=== PATIENT | male | born 1975 ===

== ENCOUNTER → 2017-05-12 | Outpatient (CLI) | payer OTHER ==
[~2017-05-12] MED LIST: CYCL10TA2 PO; ESOM40CA PO; IBUP-1060 PO; IOHEXOL 180 MG/ML 10 ML VIAL. ONE; MULT1TAB52 PO; NAPR500T3 PO; PANT20TA2 PO; PREG50CA PO; Vitamin D; methylPREDNISolone ACETATE 40 MG/ML VIAL. ONE; methylPREDNISolone ACETATE 80 MG/ML VIAL. ONE
--- NOTE | 2017-05-12 09:42 | PAIN ---
DATE OF SERVICE: 05/12/2017 DATE OF SERVICE: 05/12/2017 DIAGNOSES: Cervical radiculopathy with cervical degenerative disk disease. HISTORY OF PRESENT ILLNESS: The patient is a 41-year-old male who returns for followup status post previous cervical epidural steroid injections, most recently in 02/2016. The patient reports about 75% improvement at that time with the injection. Reports no new motor or sensory deficits, but still pain is returning now over the past 2 months or so in the base of the neck, bilateral upper extremities and shoulders radiating to the hands with tingling and numbness in the bilateral hands. He says the right equal to left, somewhat worse on the right at times, but essentially equal. The patient reports it is burning, stabbing tight and constant sensation. The patient reports a 6 on a scale of 10 at its worst, 4 on average, is currently at 2 on a scale of 10 today, which is at its least. The patient reports no new motor or sensory deficits. It awakens him from sleep occasionally, but not every night, he can reposition or get out of bed, change positions, and even able to get back to sleep. The patient reports again no loss of motor function, but increasing fatigability with the upper extremities, especially on the right side and he is right handed. PHYSICAL EXAMINATION: VITAL SIGNS: Today, the patient's blood pressure is 124/89, pulse is 101, respirations 18, temperature is 98.0 degrees Fahrenheit, height is 65 inches and weight is 225 pounds. GENERAL: The patient is awake, alert, oriented, appropriate, very pleasant demeanor. HEENT: Shows normocephalic, atraumatic. Extraocular movements are intact and symmetrical. Oral cavity shows mucous membranes moist and pink. Dentition is intact. NECK: Shows anterior throat supple without palpable lymphadenopathy noted. Swallow reflex is symmetrical. CHEST: Shows normal on inspection. Breath sounds clear to auscultation bilaterally. HEART: Shows S1 and S2 clear. No murmurs auscultated. ABDOMEN: Soft, nontender, nondistended. No palpable organomegaly is noted. BACK: Shows spine grossly midline. Cervical paraspinous musculature is symmetrical on inspection with palpation shows some mild tenderness in the inferior aspect of the cervical paraspinous muscles, but only diffusely, and is symmetrical into the superior medial and lateral trapezius, also mildly tender with palpation bilaterally, but without radiation. The patient shows good rotation and motion of cervical spine, both laterally as well as extension and flexion with some minor pain reported with extension, but not with forward flexion. No radiation in the upper extremities. EXTREMITIES: Upper extremities show deep tendon reflexes at 2+ in the biceps and triceps tendons. Motor exam is strong with buildings and grounds supervisor strength rated at 5/5 as is biceps and triceps flexion. Peripheral pulses are 2+ radial distribution and equal bilaterally. No peripheral edema is noted. Options were discussed with the patient and the patient's old chart was reviewed as his current medication regimen updated. Current review of systems updated today as well. We will proceed with the cervical epidural steroid injection with fluoroscopic guidance. Risks were again discussed including, but not limited to bleeding, infection, possibility of epidural hematoma, subsequent neurologic compromise, dural puncture, headaches, spinal cord and/or nerve damage, side effects of steroid medication and poor results regarding pain control. The patient understands and wishes to proceed. The patient will return to clinic in approximately 2 weeks or as necessary. I also encouraged MRI scan of the lumbar spine as the patient has some radicular symptoms in the bilateral lower extremities and some burning, stinging into the feet as well, which is only intermittent, but sounds like it has some radicular qualities as well. We will recommend this be ordered to his primary service and see if this can be accomplished. DIAGNOSIS: Cervical radiculopathy, cervical degenerative disk disease. PROCEDURE: Cervical epidural steroid injection in translaminar approach C6-C7 level using a C-arm fluoroscopic guidance under sterile prep and drape using local anesthetic. MEDICATION INJECTED: Total of 120 mg Depo-Medrol plus 5 mL preservative-free normal saline and 2 mL of Isovue for contrast. CONDITION AT DISCHARGE: Stable. The patient tolerated procedure well, had no complications. MIA BARRIENTOS MD DR: REMIGIO/mercedes JOB#: [id number] / [id number]
== END | disposition home or self-care (01) ==
LOC: PNCL 07:37
PROVIDERS: ATTEND Anesthesiology
DX: M50.123 Cervical disc disorder at C6-C7 level with radiculopathy (principal)
CPT/HCPCS: 62321; J1030; J1040; 62323

== ENCOUNTER → 2017-06-16 | Outpatient (CLI) | payer OTHER ==
[~2017-06-16] MED LIST changes: -NAPR500T3 PO; +NAPR500T4 PO
--- NOTE | 2017-06-16 09:25 | PAIN ---
DATE OF SERVICE: 06/16/2017 PROGRESS NOTE FOR PAIN CLINIC DIAGNOSES: Cervical radiculopathy with cervical degenerative disk disease. HISTORY OF PRESENT ILLNESS: The patient is a 41-year-old male who returns for followup status post cervical epidural steroid injection x 1. The patient reports about 50% improvement in the neck and bilateral upper extremity pain. The patient reports increasing activity with greater ease and comfort and sleeping well at night. Does not awake him from sleep, is sleeping 8 hours at a time. The patient reports the pain is returning now, however, but only to a [id number] extent, rates at 5 on a scale of 10 at its worst, 3 on average and 1 on a scale of 10 at least and it is 1 today. The patient reports aching, burning, tingling and becoming more constant, but again significantly improved and decreased with pain after the first injection. The patient did have an MRI scan since his last visit showing some significant severe stenosis at the C6-C7 level with a bilateral neural foraminal narrowing as well as some protruding disks at C3-C4, C4-C5 and C5-C6. PHYSICAL EXAMINATION: VITAL SIGNS: Today, the patient's blood pressure is 124/78, pulse 98, respirations 18, temperature 97.8 degrees Fahrenheit, height is 65 inches and weight is 218 pounds. GENERAL: The patient is awake, alert, oriented, appropriate and very pleasant demeanor. HEENT: Head shows normocephalic and atraumatic. Extraocular movements are intact and symmetrical. Oral cavity, mucous membranes are moist and pink. Dentition is intact. NECK: Shows anterior throat supple without palpable lymphadenopathy noted. Swallow reflex is symmetrical. CHEST: Shows normal on inspection. Breath sounds clear to auscultation bilaterally. HEART: Shows S1 and S2 clear. No murmurs auscultated. ABDOMEN: Soft, nontender and nondistended. No palpable organomegaly noted. BACK: Shows spine grossly in the midline. Cervical lordotic curvature appears normal with inspection of the paraspinous musculature is symmetrical without evidence of atrophy or hypertrophy. The patient shows good rotational motion of the cervical spine, both laterally as well as extension and flexion with some minor pain reported in the base of the neck and shoulders with extension but not with forward flexion, right or left lateral rotation. EXTREMITIES: Upper extremity showed deep tendon reflexes 2+ in the biceps and triceps tendons. Motor exam is strong with 5/5 automatic i threading machine feeder strength, biceps and triceps flexion. Peripheral pulses are 2+ to radial distribution. Options were discussed with the patient and the patient's old chart was reviewed as his current medication regimen updated. Current review of systems updated today as well. We will proceed with a second in the series of cervical epidural steroid injection with fluoroscopic guidance. Risks were again discussed including, but not limited to bleeding, infection, possibility of epidural hematoma, subsequent neurologic compromise, dural puncture, headaches, spinal cord and/or nerve damage, side effects of steroid medication and poor results regarding pain control. The patient understands and wishes to proceed. The patient will return to clinic in approximately 2 weeks for followup. He was counseled to return appointment, activity level and side effects to be aware of. DIAGNOSIS: Cervical radiculopathy, cervical degenerative disk disease. PROCEDURE: Cervical epidural steroid injection in translaminar approach at C6-C7 level using C-arm fluoroscopic guidance under sterile prep and drape using local anesthetic. MEDICATION INJECTED: A total of 120 mg Depo-Medrol plus 5 mL of preservative-free normal saline and 2 mL of Isovue for contrast. CONDITION AT DISCHARGE: Stable. The patient tolerated procedure well, had no complications. MIA BARRIENTOS MD DR: REMIGIO/mercedes JOB#: [id number] / [id number]
== END | disposition home or self-care (01) ==
LOC: EEVIPCON 07:40 → PNCL 07:44
PROVIDERS: ATTEND Anesthesiology
DX: M50.123 Cervical disc disorder at C6-C7 level with radiculopathy (principal)
CPT/HCPCS: 62321; J1030; J1040

== ENCOUNTER → 2017-10-26 | Outpatient (CLI) | payer OTHER ==
[~2017-10-26] MED LIST changes: -CYCL10TA2 PO; -ESOM40CA PO; -IBUP-1060 PO; +IOHEXOL 180 MG/ML 10 ML VIAL.; -IOHEXOL 180 MG/ML 10 ML VIAL. ONE; -MULT1TAB52 PO; -NAPR500T4 PO; -PANT20TA2 PO; -PREG50CA PO; -Vitamin D; +methylPREDNISolone ACETATE 40 MG/ML VIAL.; -methylPREDNISolone ACETATE 40 MG/ML VIAL. ONE; +methylPREDNISolone ACETATE 80 MG/ML VIAL.; -methylPREDNISolone ACETATE 80 MG/ML VIAL. ONE
== END | disposition home or self-care (01) ==
LOC: PNCL 07:23
DX: M50.123 Cervical disc disorder at C6-C7 level with radiculopathy (principal)
CPT/HCPCS: 62321; J1030; J1040; Q9965

== ENCOUNTER → 2018-10-18 | Outpatient (CLI) | payer OTHER ==
[~2018-10-18] MED LIST changes: +CYCL10TA2 PO; +ESOM40CA PO; +IBUP-1060 PO; -IOHEXOL 180 MG/ML 10 ML VIAL.; +IOHEXOL 180 MG/ML 10 ML VIAL. ONE; +MULT1TAB52 PO; +NAPR-514 PO; +PANT20TA2 PO; +PREG50CA PO; +Vitamin D; -methylPREDNISolone ACETATE 40 MG/ML VIAL.; +methylPREDNISolone ACETATE 40 MG/ML VIAL. ONE; -methylPREDNISolone ACETATE 80 MG/ML VIAL.; +methylPREDNISolone ACETATE 80 MG/ML VIAL. ONE
--- NOTE | 2018-10-18 12:47 | PAIN ---
DATE OF SERVICE: 10/18/2018 PROGRESS NOTE FOR PAIN CLINIC DIAGNOSIS: Cervical radiculopathy with cervical degenerative disk disease. HISTORY OF PRESENT ILLNESS: The patient is a 43-year-old male who returns for followup status post cervical epidural steroid injections x 3, last seen on 10/26/2017. The patient reports he did very well with about a 60% improvement overall from the injections and reports the pain relief that is lasted almost a year. The patient reports it is better with doing work activities, household activities, sleeping better. It is beginning to awaken him from sleep occasionally but not every night. The patient reports the pain is in the base of the neck, upper extremities bilaterally, slightly worse on the left than the right into the arms and hands with some numbness and tingling in the fingers of both hands, mostly the thumb, first and second fingers. The patient reports it is burning, tight, radiating, becoming more constant, more noticeable. The patient reports it is a 6 on a scale of 10 at its worse, 3 on average and a 2 at its least and is a 3 today. The patient reports no new motor or sensory deficits or other complaints. PHYSICAL EXAMINATION: VITAL SIGNS: The patient's blood pressure 144/97, pulse 109, respirations 16, temperature 97.9 degrees Fahrenheit and weight is 234 pounds. GENERAL: The patient is awake, alert, oriented, appropriate and very pleasant demeanor. HEENT: Head shows normocephalic and atraumatic. Extraocular movements are intact and symmetrical. Oral cavity, mucous membranes are moist and pink. Dentition is intact. NECK: Shows anterior throat supple without palpable lymphadenopathy noted. Swallow reflex symmetrical. CHEST: Shows normal on inspection. Breath sounds clear to auscultation bilaterally. HEART: Shows S1 and S2 clear. No murmurs auscultated. ABDOMEN: Soft, nontender and nondistended. No palpable organomegaly is noted. No rebound or guarding demonstrated. BACK: Shows spine grossly in the midline. Cervical paraspinous muscle shows symmetrical on inspection with normal cervical lordotic curvature on inspection. Palpation shows moderate tenderness in the inferior aspect of the cervical paraspinous musculature bilaterally as well as the superior medial trapezius, slightly more on the left than the right but present bilaterally without asymmetry. The patient has good rotational motion of the cervical spine, both laterally greater than 45 degrees right and left as well as full extension, full forward flexion without significant limitation or pain reported. EXTREMITIES: Upper extremities show deep tendon reflexes 2+ in the biceps and triceps tendons. Motor exam is 5/5 with nurse midwife strength, bicep and tricep flexion. Peripheral pulses are 2+ radial distribution bilaterally. No peripheral edema is noted. Options were discussed with the patient. The patient's old chart was reviewed as well as his current medication regimen. Current review of systems updated today as well. We will proceed with the first in this series of cervical epidural steroid injection today with fluoroscopic guidance. Risks were again discussed including, but not limited to bleeding, infection, possibility of epidural hematoma and subsequent neurological compromise, dural puncture, headaches, spinal cord and/or nerve damage, side effects of steroid medication and poor results regarding pain control. The patient understands and wished to proceed. The patient will return to the clinic in approximately 2 weeks for followup, was counseled as to return appointment as well as side effects to be aware of. DIAGNOSIS: Cervical radiculopathy with cervical degenerative disk disease. PROCEDURE: Cervical epidural steroid injection, translaminar approach, C6-C7 level using C-arm fluoroscopic guidance under sterile prep and drape using local anesthetic. MEDICATION INJECTED: A total of 120 mg Depo-Medrol plus 5 mL of preservative-free normal saline and 2 mL of Isovue for contrast. CONDITION AT DISCHARGE: Stable. The patient tolerated the procedure well and had no complications. MIA BARRIENTOS MD DR: REMIGIO/mercedes JOB#: [id number] / [id number]
== END | disposition home or self-care (01) ==
LOC: EEVIPCON 10-11 07:40 → PNCL 07:48
PROVIDERS: ATTEND Anesthesiology
DX: M50.123 Cervical disc disorder at C6-C7 level with radiculopathy (principal)
CPT/HCPCS: 62321; J1030; J1040; Q9965

== ENCOUNTER → 2019-01-31 | Outpatient (CLI) | payer OTHER ==
--- NOTE | 2019-01-31 21:47 | PAIN ---
DATE OF SERVICE: 01/31/2019 DIAGNOSES: Cervical radiculopathy with cervical degenerative disk disease. HISTORY OF PRESENT ILLNESS: The patient is a 43-year-old male who returns for followup status post cervical epidural steroid injection x 1 on 10/18/2018. The patient reports he did fairly well, had about 80% improvement until about the last 4 weeks, pain is returning in the base of neck and right upper extremity. The patient reports it is in the shoulder and arm into the hand and fingers as well as previous and numbness and tingling, burning, becoming, more constant and tight with activity, worse with reaching over his head with the right arm and weight lifting with the right arm or any type of weightbearing, repetitive motions or reaching over his head on the right side. The patient reports it is an 8 on a scale of 10 at its worst, 6 on average, 5 at its least and is a 6 today. The patient reports no new motor or sensory deficits, no new bowel or bladder incontinence. It does not awaken him from sleep. Initially, he was increasing his ability to do work activities and activities with traveling well greater ease and comfort, but the pain is returning now, it is still not awakening him from sleep. The patient reports no new motor or sensory deficits or other complaints. PHYSICAL EXAMINATION: VITAL SIGNS: The patient's blood pressure 125/84, pulse 88, respirations 18, temperature 97.6 degrees Fahrenheit, height 65 inches, weight is 226 pounds. GENERAL: The patient is awake, alert, oriented, appropriate, very pleasant demeanor. HEENT: Shows normocephalic, atraumatic. Extraocular movements are intact and symmetrical. Oral cavity: Mucous membranes moist and pink. Dentition is intact. NECK: Shows anterior throat supple without palpable lymphadenopathy noted. Swallow reflex is symmetrical. CHEST: Shows normal with inspection. Breath sounds clear to auscultation bilaterally. HEART: Shows S1, S2 clear. No murmurs auscultated. ABDOMEN: Soft, nontender, nondistended. No palpable organomegaly is noted. No rebound or guarding demonstrated. BACK: Shows spine grossly in the midline. Normal appearing cervical lordotic curvature and thoracic kyphotic curvature. The patient's cervical paraspinous muscle shows symmetrical on inspection, on palpation shows some moderate tenderness diffusely in the middle and inferior aspect of the cervical paraspinous musculature, more on the right than the left and into the superior medial trapezius more on the right than the left as well. The patient shows good rotational motion of cervical spine; however, both laterally as well as extension and flexion without significant difficulty or pain reported. EXTREMITIES: Upper extremities show deep tendon reflexes 2+ in the biceps and triceps tendons. Motor exam is strong with insurance coder strength rated 5/5 and equal bilaterally. Options were discussed with the patient. The patient's old chart was reviewed as his current medication updated. Current review of systems updated today as well. We will proceed with a cervical epidural steroid injection second in this series today with fluoroscopic guidance. Risks were again discussed including, but not limited to bleeding, infection, possibility of epidural hematoma, subsequent neurological compromise, dural puncture, headaches, spinal cord and/or nerve damage, side effects of steroid medication and poor results regarding pain control. The patient understands and wished to proceed. The patient will return to clinic in approximately 2 weeks for followup. She was counseled on return appointment, activity level and side effects to be aware of. DIAGNOSES: Cervical radiculopathy with cervical degenerative disk disease. PROCEDURE: Cervical epidural steroid injection, translaminar approach C6-C7 level using C-arm fluoroscopic guidance under sterile prep and drape using local anesthetic. MEDICATION INJECTED: A total of 120 mg Depo-Medrol plus 5 mL of preservative-free normal saline and 2 mL of Isovue for contrast. CONDITION AT DISCHARGE: Stable. The patient tolerated procedure well, had no complications. MIA BARRIENTOS MD DR: REMIGIO/mercedes JOB#: [id number] / [id number]
== END ==
LOC: PNCL 07:51
PROVIDERS: ATTEND Anesthesiology
DX: M50.123 Cervical disc disorder at C6-C7 level with radiculopathy (principal)
CPT/HCPCS: 62321; J1030; J1040; Q9965

== ENCOUNTER → 2019-10-15 | Outpatient (CLI) | payer OTHER ==
--- NOTE | 2019-10-15 09:31 | PAIN ---
DATE OF SERVICE: 10/15/2019 PROGRESS NOTE FOR PAIN CLINIC DIAGNOSES: Cervical radiculopathy with cervical degenerative disk disease. HISTORY OF PRESENT ILLNESS: The patient is a 44-year-old male who returns for followup status post cervical epidural steroid injections, last seen 01/31/2019. The patient did very well after 2 injections in that early spring and January with about 60% improvement for about 4 months following the last injection. The patient reports the pain is returning now for about the past 3-4 months in the base of the neck and shoulders, worse on the right than the left with increased pain with movement, difficulty with fine motor movements, especially buttoning a shirt with his right hand, dropping some items with the right arm as well. The patient reports the pain is in the base of the neck radiating to the upper extremities, bilateral shoulders, mostly in the posterolateral aspect of the right upper arm, posterior triceps and biceps and into the fingers on the right hand that is the thumb and first finger, most specifically on the right side and also some tingling in the left side. The patient reports it is tight in the neck and tingling in the arms, burning and stinging in the shoulders radiating to both upper extremities and becoming more constant. The patient reports it is worse with lifting, repetitive motions with each of the upper extremities, raising his hand over his head, grabbing items above the head or with any weightbearing and repetitive motions. The patient reports it is 7 on a scale of 10 at its worst over the past week, 5-6 on average and 4 at its least and is a 6 today. The patient reports no new motor or sensory deficits, no new bowel or bladder incontinence or other complaints. Reports it awakens him from sleep about every 4-5 hours. He has to toss and turn around to get any rest. The patient reports initially he was doing much better with distance walking, work activities, household activities as well. PHYSICAL EXAMINATION: VITAL SIGNS: The patient's blood pressure 143/94, pulse 96, respirations 18, temperature 97.4 degrees Fahrenheit, height is 65 inches, weight is 233 pounds. GENERAL: The patient is awake, alert, oriented, appropriate, very pleasant demeanor. HEENT: Shows normocephalic, atraumatic. Extraocular movements are intact and symmetrical. Oral cavity: Mucous membranes moist and pink. Dentition is intact. NECK: Shows anterior throat supple without palpable lymphadenopathy noted. Swallow reflex symmetrical. CHEST: Shows normal on inspection. Breath sounds are clear bilaterally. HEART: Shows S1, S2 clear. No murmurs auscultated. ABDOMEN: Soft, nontender, nondistended. BACK: Shows spine grossly in the midline. Normal appearing thoracic kyphosis and lumbar lordotic curvature. Cervical lordotic curvature shows normal on inspection, with palpation shows some moderate tenderness diffusely in the cervical paraspinous musculature bilaterally, but only diffusely without significant radiation. The patient has good range of motion both laterally as well as extension and flexion without significant increase in pain. EXTREMITIES: The patient's upper extremities show deep tendon reflexes 2+ in the biceps and triceps tendons. Motor exam is approximately 4 on a scale of 5 with right cable maker strength and 5/5 on the left. Bicep and tricep flexion is 5/5 and equal. Peripheral pulses are 2+ radial. No peripheral edema is noted. Shoulder shrug is strong and intact without loss of strength on resistance with some moderate tenderness in the bilateral shoulders with resistance, but again no loss of strength. Options were discussed with the patient. The patient's old chart was reviewed as his current medication regimen updated. Current review of systems updated today as well. We will proceed with a cervical epidural steroid injection today. He has done very well with these in the past. Risks were again discussed including, but not limited to bleeding, infection, possibility of epidural hematoma, subsequent neurological compromise, dural puncture, headaches, spinal cord and/or nerve damage, side effects of steroid medication and poor results regarding pain control. The patient understands and wished to proceed. The patient will return to clinic in approximately 2 weeks for followup. He was counseled on return appointment, activity level and side effects to be aware of. DIAGNOSES: Cervical radiculopathy with cervical degenerative disk disease. PROCEDURE: Cervical epidural steroid injection, translaminar approach C6-C7 level using C-arm fluoroscopic guidance under sterile prep and drape using local anesthetic. MEDICATION INJECTED: A total of 120 mg Depo-Medrol plus 5 mL of preservative-free normal saline and 2 mL of contrast. CONDITION AT DISCHARGE: Stable. The patient tolerated the procedure well, had no complications. MIA BARRIENTOS MD DR: REMIGIO/mercedes JOB#: [id number] / [id number]
== END ==
LOC: PNCL 07:40 → EEVIPCON 08:00
PROVIDERS: ATTEND Anesthesiology
DX: M50.123 Cervical disc disorder at C6-C7 level with radiculopathy (principal)
CPT/HCPCS: 62321; J1030; J1040; Q9965

== ENCOUNTER → 2020-04-13 | Outpatient (CLI) | payer OTHER ==
[~2020-04-13] MED LIST changes: +MULT-445 PO; -MULT1TAB52 PO; -PREG50CA PO; +PREG50CA91 PO
--- NOTE | 2020-04-13 08:35 | PDOC ---
Progress Note - Pain Clinic Date of Service: DOS: DATE: 04/13/20 TIME: 08:29 Diagnosis: Dx: Cervical radiculopathy with cervical degenerative disc disease History or Present Illness: HPI: 44-year male returns for follow-up status post cervical epidural straight injection x1 last seen October 15, 2019. Patient reports he did very well at that time but 60 to 70% improvement and the neck and bilateral upper extremities patient reports pain is returning now in the base the neck and shoulders worse on the left than the right but present bilaterally patient reports is a 7 on a scale of 10 is worse of the past week 3-4 on average in 2 days least. Patient with tingling burning tight count in the base the neck and shoulders upper extremities rating the posterior deltoids into the posterior triceps also in the anterior biceps forearms and into the hands and fingers with numbness and tingling in both hands. Patient reports no new motor or sensory deficits worse with activity reaching over his head with his arms repetitive motions weight lifting reaching or weightbearing. Patient also complains of pain in the low back and into the right lower extremity in a posterior gluteus posterior lateral thigh lateral anterior thigh to the level of the knee worse with walking standing and changing positions. Patient ports pain wakes him from sleep at night least once or twice from the low back or the neck and shoulders. Reports no new motor or sensory deficits no new bowel or bladder incontinence or other complaints Physical Exam: VS: Blood pressure is 130/95 pulse 114 respirations 18 temperature 98.3 F height is 65 inches weight is 2 three 5 pound PE: PHYSICAL EXAMINATION: GENERAL: The patient is awake, alert, oriented, appropriate, very pleasant demeanor HEENT: Shows normocephalic, atraumatic. Extraocular movements are intact and symmetrical. Oral cavity: Mucous membranes moist and pink. Dentition is intact. NECK: Shows anterior throat supple without palpable lymphadenopathy noted. Swallow reflex symmetrical. CHEST: Shows normal on inspection. Breath sounds are clear bilaterally. HEART: Shows S1, S2 clear. No murmurs auscultated. ABDOMEN: Soft, nontender, nondistended. No palpable organomegaly is noted. No rebound or guarding demonstrated. BACK: Shows spine grossly in the midline. Normal-appearing cervical lordotic curvature. Neck shows good rotation of motion both laterally greater than 45 degrees right and left closer to 90 degrees without significant increase in pain extension flexion performed fully without significant increase in pain as well. Paraspinous muscles are symmetrical on inspection on palpation some moderate tenderness the inferior aspect of the cervical paraspinous muscle strength is into the superior medial trapezius musculature bilaterally but without specific trigger points without radiation or atrophy hypertrophy. There is slightly increased thoracic kyphosis, some minor flattening of the lumbar lordotic curvature. Lumbar paraspinous muscles show symmetrical on inspection, on palpation shows some moderate tenderness diffusely throughout the upper, middle and lower distribution of the paraspinous muscles but without specific trigger points, without radiation of pain. The patient has good rotational motion of the lumbar spine, both laterally as well as extension and flexion without significant difficulty. No tenderness over the spinous processes, sacrum or sacroiliac regions. EXTREMITIES: Upper extremities show deep tendon reflexes 2+ in the biceps and triceps tendons. Motor exam is 5 on a scale of 5 with right dorsiflexion, extension, quadriceps and hamstring flexion and 5/5 on the left. Peripheral pulses are 2+ radial bilaterally. No peripheral edema is noted bilaterally. Upper extremities are warm and dry to touch, equal in color and appearance. SKIN: Shows warm and dry, good turgor. No edema. No sores, rashes or bruising throughout. Options were discussed with the patient. The patient's old chart was reviewed and current medication regimen updated. [] Procedure: Procedure: Options were discussed with the patient. Patient's old chart was reviewed his current medication regimen updated current review of systems updated as well. And we will proceed with a cervical epidural steroid injection as a second in the series. Risks discussed including but not limited to bleeding infection possibility of epidural hematoma and subsequent neurological compromise dural puncture headache spinal cord and or nerve damage side effects steroid medication and portals current pain control. Patient understands wishes to proceed. Patient return to clinic in approximately 2 weeks for follow-up was counseled as to return appointment activity level and side effects be aware. Medication Injected: Med Injected: Procedure cervical epidural steroid injection at the C6-7 level, using local a nesthetic under sterile prep and drape using C-arm fluoroscopic guidance under local anesthesia medications injected ; 120 mg Depo-Medrol + 5 mL normal saline and 2 mL contrast; condition at discharge is stable patient tolerated procedure well. and had no complications Condition at Discharge: Condition at Discharge: Condition at discharge is stable patient tolerated the procedure well had no complications. MIA BARRIENTOS MD Apr 13, 2020 08:35
== END | disposition home or self-care (01) ==
LOC: PNCL 07:52 → EEVIPCON 08:00
PROVIDERS: ATTEND Anesthesiology
DX: M50.123 Cervical disc disorder at C6-C7 level with radiculopathy (principal); Z79.899 Other long term (current) drug therapy
CPT/HCPCS: 62321; J1030; J1040; Q9965

== ENCOUNTER → 2021-03-10 | Outpatient (CLI) | payer OTHER ==
[~2021-03-10] MED LIST changes: +DOXY50CA PO; +IBUP-1027 PO; +TAMS0.4C97 PO
--- NOTE | 2021-03-10 08:32 | PDOC ---
Progress Note - Pain Clinic Date of Service: DOS: DATE: 03/10/21 TIME: 08:28 Diagnosis: Dx: Cervical radiculopathy with cervical degenerative disc disease Lumbar radiculopathy with lumbar degenerative disc disease History or Present Illness: HPI: 45-year-old male returns in follow-up status post cervical epidural steroid injections most recently April 13, 2020. Patient did very well with near 75% improvement pain returning now over the past 1 to 2 months or so in the base the neck and shoulders upper extremities slightly more on the left than the right but present bilaterally with numbness and tingling radiating to the upper extremities posterior deltoid anterior biceps into the forearms anteriorly posteriorly and with numbness and tingling in both hands patient reports that sharp and tight in the neck shooting in the upper extremities tingling and burning in the upper extremities with radiating pain that can be constant rated as a 7 on a scale of 10 is worse over the past week 5 on average to its least is a 5 today patient reports no new motor or sensory deficit still has some significant pain in the low back rating the bilateral lower extremities mostly the posterior lateral hips and lateral thighs patient reports he is scheduled to have a new MRI scan of the lower back and a follow-up MRI scan of his neck coming up soon ordered for his primary physician. Patient reports initially was doing much better after his last injection distance walking doing household activities work activities patient reports he is sleeping better at night but over the past month and a half beginning awakening from sleep about 2-3 times a night. Patient reports no new motor or sensory deficits no bowel or bladder incontinence. Physical Exam: VS: Blood pressure is 144/90 pulse 94 respirations are 16 temperature is 98.1 F weight is 225 pounds PE: PHYSICAL EXAMINATION: GENERAL: The patient is awake, alert, oriented, appropriate, very pleasant in demeanor HEENT: Shows normocephalic, atraumatic. Extraocular movements are intact and symmetrical. Oral cavity: Mucous membranes moist and pink. Dentition is intact. NECK: Shows anterior throat supple without palpable lymphadenopathy noted. Swallow reflex is symmetrical. CHEST: Shows normal on inspection. Breath sounds are clear bilaterally, no rales or rhonchi. HEART: Shows S1, S2 clear. No murmurs auscultated. ABDOMEN: Soft, nontender, nondistended, obese. No palpable organomegaly is noted. BACK: Shows spine grossly in the midline. Normal-appearing cervical lordotic cur atrophy hypertrophy or trigger points. Patient shows good rotation motion cervical spine both laterally as well as full extension full forward flexion without significant difficulty as well. Va cervical paraspinous muscles show symmetrical with inspection, on palpation some moderate tenderness diffusely in the inferior aspect cervical paraspinous muscles but without significant ure. There is slightly increased thoracic kyphosis, some minor flattening of the lumbar lordotic curvature. Lumbar paraspinous muscles show symmetrical on inspection, on palpation shows some moderate tenderness diffusely throughout the upper, middle and lower distribution of the paraspinous muscles, but without specific trigger points, without radiation of pain. The patient has good rotational motion of the lumbar spine, both laterally as well as extension and flexion without significant difficulty. No tenderness over the spinous processes, sacrum or sacroiliac regions. EXTREMITIES: Lower extremities show deep tendon reflexes 2+ in the patellar and tendo calcaneus tendons. Motor exam is 5 on a scale of 5 with right dorsiflexio n, extension, quadriceps and hamstring flexion and 5/5 on the left. Peripheral pulses are 1+ posterior tibial. No peripheral edema is noted bilaterally. Lower extremities are warm and dry to touch, equal in color and appearance. Upper extremity show deep tendon reflexes 2+ in the left bicep tendons motor exam is normal digital traffic coordinator strength rated 5 out of 5 as is bicep and tricep flexion. Peripheral pulses are 2+ radial. SKIN: Shows warm and dry, good turgor. No edema. No sores, rashes or bruising throughout. Procedure: Procedure: Options discussed with the patient. Patient chart reviewed his current medication regimen updated current review of systems updated today as well. We will proceed with a cervical epidural steroid injection as the first in the series today with fluoroscopic guidance. Risks were discussed including but not limited to: Bleeding, infection, possibility of epidural hematoma and subsequent neurological compromise, dural puncture, headaches, spinal cord and/or nerve damage, side effects of steroid medication, and poor results regarding pain control. Patient understands and wished to proceed. Patient return to clinic in approximately 2 weeks for follow-up, was counseled as to return appointment activity level and side effects to be aware of. Medication Injected: Med Injected: Procedure cervical epidural steroid injection at the C6-7 level, using local anesthetic under sterile prep and drape using C-arm fluoroscopic guidance under local anesthesia medications injected ;120 mg Depo-Medrol +5 mL normal saline and 2 mL contrast; condition at discharge is stable patient tolerated procedure well. and had no complications Condition at Discharge: Condition at Discharge: Condition at discharge stable, patient already procedure well had no complications. MIA BARRIENTOS MD Mar 10, 2021 08:32
--- NOTE | 2021-03-10 08:33 | PDOC4 ---
Procedure Note: Procedure Note: Patient was consented for cervical epidural steroid injection. Risks were discussed including but not limited to: Bleeding, infection, possibility of epidural hematoma and subsequent neurological compromise, dural puncture, headaches, spinal cord and/or nerve damage, side effects of steroid medication, and poor results regarding pain control. Patient understands and wished to proceed. Procedure cervical epidural steroid injection at the C6-7 level, using local anesthetic under sterile prep and drape using C-arm fluoroscopic guidance under local anesthesia medications injected ;120 mg Depo-Medrol +5 mL normal saline and 2 mL contrast; condition at discharge is stable patient tolerated procedure well. and had no complications. MIA BARRIENTOS MD Mar 10, 2021 08:33
== END | disposition home or self-care (01) ==
LOC: PNCL 07:48 → EEVIPCON 08:00
PROVIDERS: ATTEND Anesthesiology
DX: M50.10 Cervical disc disorder with radiculopathy, unspecified cervical region (principal); M51.16 Intervertebral disc disorders with radiculopathy, lumbar region; Z79.899 Other long term (current) drug therapy
CPT/HCPCS: 62321; J1030; J1040; Q9965; 62323

== ENCOUNTER → 2021-12-02 | Outpatient (CLI) | payer OTHER ==
[~2021-12-02] MED LIST changes: +CYCL10TA19 PO; -CYCL10TA2 PO; -IOHEXOL 180 MG/ML 10 ML VIAL. ONE; +PREG150C PO; -methylPREDNISolone ACETATE 40 MG/ML VIAL. ONE; -methylPREDNISolone ACETATE 80 MG/ML VIAL. ONE
--- NOTE | 2021-12-02 12:20 | PDOC ---
Progress Note - Pain Clinic Date of Service: DOS: DATE: 12/02/21 TIME: 12:14 Diagnosis: Dx: Cervical radiculopathy with cervical degenerative disc disease Lumbar radiculopathy with lumbar degenerative disc disease History or Present Illness: HPI: 46-year-old male returns for follow-up status post cervical epidural steroid injection last seen in March 2021. Patient reports he did very well after ce rvical epidural steroid injection without 75% improvement initially for about 4 months patient reports her pain is returning now and still is helpful but is about 35% improvement overall is been several month since his last visit patient reports he also has pain in the low back and the bilateral lower extremities was becoming more noticeable with walking standing bending or stooping doing work activities as well as difficulty with sleeping patient reports his main complaint however is his neck and upper extremities and shoulders with hands tingling and numb describe the pain the base the neck is burning and tight aching shooting in the upper extremities radiating can be constant severe on and off in intensity generally wakes him from sleep least once or twice a night patient reports is a 6 on scale 10 is worse over the past week, is least is a 3 and is a 4 today patient reports difficulty with fine motor movements as well hands both of them with buttons and snaps all manipulations of the fingers. Patient reports no motor loss but significant fatigability of the upper extremities with repetitive motion and lifting, and weightbearing activities. Physical Exam: VS: Blood pressure is 130/87 pulse 81 respirations 18 temperature 97.8 F weight is 222 pounds. PE: PHYSICAL EXAMINATION: GENERAL: The patient is awake, alert, oriented, appropriate, very pleasant in demeanor HEENT: Shows normocephalic, atraumatic. Extraocular movements are intact and symmetrical. Oral cavity: Mucous membranes moist and pink. Dentition is intact. NECK: Shows anterior throat supple without palpable lymphadenopathy noted. Swallow reflex symmetrical. CHEST: Shows normal on inspection. Breath sounds are clear bilaterally, distant but no rales rhonchi. HEART: Shows S1, S2 clear. No murmurs auscultated. ABDOMEN: Soft, nontender, nondistended. No palpable organomegaly is noted. No rebound or guarding demonstrated. BACK: Shows spine grossly in the midline. Normal-appearing cervical lordotic curvature. Cervical paraspinous muscles show symmetrical inspection, palpation some moderate tenderness diffusely throughout the middle and lower distribution the paraspinous musculature bilaterally right equal to left without significant trigger points without atrophy hypertrophy or asymmetry. Patient shows good rotation motion with slightly guarded with extension but with right and left lateral rotation some moderate tenderness reported past 45 degrees but full range of motion forward flexion is performed without significant difficulty. There is slightly increased thoracic kyphosis, some minor flattening of the lumbar lordotic curvature. Lumbar paraspinous muscles show symmetrical on inspection, on palpation shows some moderate tenderness diffusely throughout the upper, middle and lower distribution of the paraspinous muscles, but without specific trigger points, without radiation of pain. The patient has good rotational motion of the lumbar spine, both laterally as well as extension and flexion without significant difficulty. No tenderness over the spinous processes, sacrum or sacroiliac regions. EXTREMITIES: Lower extremities show deep tendon reflexes 1+ in the patellar and tendo calcaneus tendons. Motor exam is 5 on a scale of 5 with right d orsiflexion, extension, quadriceps and hamstring flexion and 5/5 on the left. Peripheral pulses are 1+ posterior tibial. No peripheral edema is noted bilaterally. Lower extremities are warm and dry to touch, equal in color and appearance. Upper extremity show deep tendon reflexes 2+ in the bicep tricep tendons motor exam is approximately 4 to scale 5 the right 5 out of 5 in the left bicep tricep flexion is 5 out of 5 bilaterally and equal. Peripheral pulses are 2+ radial. SKIN: Shows warm and dry, good turgor. No edema. No sores, rashes or bruising throughout. Procedure: Procedure: Options were discussed with the patient. Patient's old chart was reviewed his current medication regimen updated current review of systems updated today as well. As patient has done very well with the previous treatment, we will preauthorize patient for cervical epidural steroid injection with fluoroscopic guidance. In the meantime, patient will continue with stretching strength exercises as well as oral analgesics as currently. Also discussed the patient's low back and bilateral lower extremity pain will recommend MRI scan of the lumbar spine to better differentiate the radicular qualities of his current symptoms. This will be sent to the [facility] for preauthorization. Medication Injected: Med Injected: None Condition at Discharge: Condition at Discharge: Condition at discharge is stable. MIA BARRIENTOS MD Dec 02, 2021 12:20
== END | disposition home or self-care (01) ==
LOC: PNCL 11:25 → EEVIPCON 11:40
PROVIDERS: ATTEND Anesthesiology
DX: M51.16 Intervertebral disc disorders with radiculopathy, lumbar region (principal); M50.10 Cervical disc disorder with radiculopathy, unspecified cervical region; Z79.899 Other long term (current) drug therapy
CPT/HCPCS: 99212; G0463

== ENCOUNTER → 2022-01-24 | Outpatient (CLI) | payer OTHER ==
[~2022-01-24] MED LIST changes: +DEXAMETHASONE PRES.FREE 10 MG/ML VIAL. ONE; +IOHEXOL 180 MG/ML 10 ML VIAL. ONE
--- NOTE | 2022-01-24 08:27 | PDOC ---
Progress Note - Pain Clinic Date of Service: DOS: DATE: 01/24/22 TIME: 08:24 Diagnosis: Dx: Cervical radiculopathy with cervical degenerative disc disease History or Present Illness: HPI: 46-year-old male returns for follow-up status post previous cervical epidural steroid injection most recently March 2021 patient did very well with pain returning now in the base the neck and shoulders worse on the right than the left and present bilaterally rating the upper extremities into the forearm and hands with numbness and tingling in all the fingers and thumbs bilaterally patient reports a 6 on scale 10 is worse over the past week for an average 3 to [place] is a 4 today. Patient reports worse with repetitive motions reaching over his head with his upper extremities difficulty with sleeping weight lifting repetitive reaching and weightbearing reaching forward and backward patient reports is aching and tight in the base of the neck and shoulders tingling burning radiating and constant with activity. Patient reports no loss of motor function but significant fatigability of both the upper extremities again right worse than left. Physical Exam: VS: Blood pressure is 122/81 pulse 91 respirations 18 temperature is 98.4 F height 65 inches weight is 215 pounds. PE: PHYSICAL EXAMINATION: GENERAL: The patient is awake, alert, oriented, appropriate, very pleasant in demeanor HEENT: Shows normocephalic, atraumatic. Extraocular movements are intact and symmetrical. Oral cavity: Mucous membranes moist and pink. Dentition is intact. NECK: Shows anterior throat supple without palpable lymphadenopathy noted. Swal low reflex symmetrical. CHEST: Shows normal on inspection. Breath sounds are clear bilaterally, no rales or rhonchi. HEART: Shows S1, S2 clear. No murmurs auscultated. ABDOMEN: Soft, nontender, nondistended. No palpable organomegaly is noted. BACK: Shows spine grossly in the midline. Normal-appearing cervical lordotic curvature. Cervical paraspinous muscles show symmetrical inspection, palpation some moderate tenderness diffusely in the inferior aspect cervical paraspinous posture bilaterally without radiation without atrophy or hypertrophy noted without asymmetry. Patient shows good rotational motion of the cervical spine slightly guarded right and left lateral as well as with extension and flexion but performed fully. There is slightly increased thoracic kyphosis, some minor flattening of the lumbar lordotic curvature. Lumbar paraspinous muscles show symmetrical on inspection, on palpation shows some moderate tenderness diffusely throughout the upper, middle and lower distribution of the paraspinous muscles, but without specific trigger points, without radiation of pain. The patient has good rotational motion of the lumbar spine, both laterally as well as extension and flexion without significant difficulty. No tenderness over the spinous processes, sacrum or sacroiliac regions. EXTREMITIES: Lower extremities show deep tendon reflexes 1 in the patellar and tendo calcaneus tendons. Motor exam is 5 on a scale of 5 with right dorsiflexion, extension, quadriceps and hamstring flexion and 5/5 on the left. Peripheral pulses are 1+ posterior tibial. No peripheral edema is noted bilaterally. Lower extremities are warm and dry to touch, equal in color and appearance. Upper extremities are Deetjen reflexes 2+ in the bicep tricep tendons motor exam is a 4 scale 5 with right educational adviser strength bicep tricep flexion 5/5 on the left. Shoulder shrug strong and intact without loss of strength on resistance bilaterally. SKIN: Shows warm and dry, good turgor. No edema. No sores, rashes or bruising throughout. Procedure: Procedure: Options discussed with the patient. Patient's old chart was reviewed his his current medication regimen updated current review of systems updated today as well. We will proceed with a cervical epidural steroid injection today with fluoroscopic guidance. Risks were discussed including but not limited to: Bleeding, infection, possibility of epidural hematoma and subsequent neurological compromise, dural puncture, headaches, spinal cord and/or nerve damage, side effects of steroid medication, and poor results regarding pain control. Patient understands and wished to proceed. Patient will return to the clinic in approximately 2 weeks for follow-up, was counseled as to return appointment, activity level, and side effects to be aware of. Medication Injected: Med Injected: Procedure cervical epidural steroid injection at the C6-7 level, using local anesthetic under sterile prep and drape using C-arm fluoroscopic guidance under local anesthesia medications injected ; 20 mg dexamethasone +5 mL normal saline and 2 mL contrast; condition at discharge is stable patient tolerated procedure well. and had no complications Condition at Discharge: Condition at Discharge: Condition at discharge is stable, patient tolerated the procedure well and had no complications. MIA BARRIENTOS MD January 24, 2022 08:27
--- NOTE | 2022-01-24 08:28 | PDOC4 ---
Procedure Note: ICD 10 Code: ICD 10 Code: M54.12 M50.30 Procedure Note: Patient was consented for cervical epidural steroid injection with fluoroscopic guidance. Risks were discussed including but not limited to: Bleeding, infection, possibility of epidural hematoma and subsequent neurological compromise, dural puncture, headaches, spinal cord and/or nerve damage, side effects of steroid medication, and poor results regarding pain control. Patient understands and wished to proceed. Procedure cervical epidural steroid injection at the C6-7 level, using local anesthetic under sterile prep and drape using C-arm fluoroscopic guidance under local anesthesia medications injected ; 20 mg dexamethasone +5 mL normal saline and 2 mL contrast; condition at discharge is stable patient tolerated procedure well. and had no complications MIA BARRIENTOS MD January 24, 2022 08:28
== END | disposition home or self-care (01) ==
LOC: PNCL 07:40 → EEVIPCON 08:00
PROVIDERS: ATTEND Anesthesiology
DX: M50.10 Cervical disc disorder with radiculopathy, unspecified cervical region (principal); M54.12 Radiculopathy, cervical region; Z79.899 Other long term (current) drug therapy
CPT/HCPCS: 62321; J1100; Q9965